=== PATIENT | female | born 1970 | race African-American/Black ===

== ENCOUNTER 2016-10-10 14:40 | Emergency (ER) | payer OTHER ==
[~2016-10-10] VITALS: Ht 172.7 cm; Wt 99.8 kg
[2016-10-10] MEDS ORDERED: NKM (14:56)
[2016-10-10] MEDS ORDERED: Norco 5mg/325mg tab ORAL ONE (15:15)
--- NOTE | 2016-10-10 15:26 | Emergency Room Report ---
History of Present Illness General Chief Complaint: Upper Extremity Injury Source: Patient Present Illness HPI 45-year-old female presents to emergency Department complaining of pain and swelling to the base of the right thumb and wrist x3 weeks. Patient states she had a fall on outstretched hand approximately 2 moths ago and never received evaluation. Patient reports 8/10 localized pain. Patient denies previous injury to the extremity. Patient denies hitting her head or losing consciousness. Patient denies bruising or other skin color changes. She denies increased temperature palpation, erythema or lesions. Denies numbness tingling or loss of sensation or gross motor movements of the extremities, incontinence of bowel or bladder. Denies CP, Palpitations, LOC, AMS, dizziness, Changes in Vision, Sensation, paresthesias, or a sudden severe headache. Allergies: Coded Allergies: No Known Allergies (Unverified , 10/10/16) Patient History Past Medical History: see triage record Past Surgical History: none Pertinent Family History: none Last Menstrual Period: two weeks Now: No Immunizations: UTD Reviewed Nursing Documentation: PMH: Agreed, PSxH: Agreed Nursing Documentation-PMH Past Medical History: No Stated History Review of Systems All Other Systems: negative except mentioned in HPI Physical Exam Vital Signs Date Time Temp Pulse Resp B/P Pulse Ox O2 Delivery O2 Flow Rate FiO2 10/10/16 14:52 98.1 77 18 127/81 98 Room Air Sp02 EP Interpretation: reviewed, normal General Appearance: no apparent distress, alert, GCS 15, non-toxic Head: normocephalic, atraumatic Eyes: bilateral eye PERRL, bilateral eye normal inspection ENT: hearing grossly normal, normal pharynx, no angioedema, normal voice Neck: full range of motion, supple/symm/no masses Respiratory: chest non-tender, lungs clear, normal breath sounds, speaking full sentences Cardiovascular #1: regular rate, rhythm, no edema Gastrointestinal: non tender, soft, no guarding, no rebound Rectal: deferred Genitourinary: normal inspection, no CVA tenderness Musculoskeletal: back normal, gait/station normal, normal range of motion, no calf tenderness, tender - right snuff box TTP, mild swelling noted, FROM of wrist and thumb with pain. Neurologic: alert, oriented x3, responsive, motor strength/tone normal, sensory intact, speech normal Psychiatric: judgement/insight normal, memory normal, mood/affect normal, no suicidal/homicidal ideation Skin: normal color, no rash, warm/dry, well hydrated Lymphatic: no adenopathy Procedures Splinting Splinting : Consent: Verbal Location: right hand Pre-Made Type: thumb spica Splint: thumb spica Pre-Proc Neuro Vasc Exam: normal Post-Proc Neuro Vasc Exam: normal Patient Tolerated: Well Complications: None Medical Decision Making PA Attestation Dr. Guillen is my supervising Physician whom patient management has been discussed with. Diagnostic Impression: Primary Impression: Degenerative arthritis of thumb Qualified Codes: M19.041 - Primary osteoarthritis, right hand ER Course Pt. presents to the ED c/o complaining of pain and swelling to the base of the right thumb and wrist x3 weeks. Patient states she had a fall on outstretched hand approximately 3 weeks ago and never received evaluation. Patient reports 9 /10 localized pain. Ddx considered but are not limited to Fracture, dislocation, contusion, Sprain/ Strain/Spasm, Epidural abscess, Neoplastic mets. Vital signs: are WNL, pt. is afebrile H&PE are most consistent with possible scaphoid fracture of the right hand. ORDERS: - X-ray Right hand 3 views - negative for fx, Dislocation, or significant soft tissue injury-- notable arthritic changes at the base of the left thumb- per preliminary read in ED by Dr. Guillen ED INTERVENTIONS: - 5mg norco PO -Thumb Spica Splint applied to right hand by large animal husbandry technician. Pt. remains neurovascularly intact. DISCHARGE: At this time pt. is stable for d/c to home. Will provide printed patient care instructions, and any necessary prescriptions. Care plan and follow up instructions have been discussed with the patient prior to discharge. Last Vital Signs Date Time Temp Pulse Resp B/P Pulse Ox O2 Delivery O2 Flow Rate FiO2 10/10/16 14:52 98.1 77 18 127/81 98 Room Air Disposition: HOME, SELF-CARE Condition: Stable Scripts Ibuprofen* (MOTRIN*) 600 Mg Tablet 600 MG ORAL THREE TIMES A DAY, #30 TAB 0 Refills Prov: Meron Hernandez 10/10/16 Referrals: [facility],REFERRING (PCP) Patient Instructions: Arthritis Additional Instructions: Take medications as directed. Follow up with PCP or Hand Specialist in 3-5 days Return sooner to ED if new symptoms occur, or current symptoms become worse. Meron Hernandez Oct 10, 2016 15:26
[2016-10-10] MEDS ORDERED: IBUPROFEN600 MG ORAL (15:39)
[2016-10-10 15:48] VITALS: BP 129/84
--- NOTE | 2016-10-10 16:12 | Diagnostic Imaging Report ---
Indication: PAIN Technique: 3 views right hand Comparison: none Findings: There is what appears to be a fracture deformity, possibly old ununited, of the trapezium. The fragment appear by well corticated. No first metatarsal shaft fracture or other acute fracture. The joint spaces are preserved. 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
== END 2016-10-10 15:51 | disposition home or self-care (01) ==
LOC: EMR 15:00
DX: M19.041 Primary osteoarthritis, right hand (principal)
CPT/HCPCS: 29260; 99283